=== PATIENT | male | born 1960 | race Caucasian/White ===

== ENCOUNTER 2021-07-12 13:07 | Inpatient (IN) ==
[2021-07-12 14:37] LABS: Basophils % 0.2 %; Eosinophils # 0.2 K/mcL (0.0-0.6); Eosinophils % 1.3 %; Hematocrit 42.7 % (37.5-50.1); Hemoglobin 14.2 g/dL (12.9-16.9); Immature Granulocytes % 0.4 % (0-4); Lymphocytes # 1.2 K/mcL (0.6-4.6); Lymphocytes % 10.8 %; Mean Corpuscular HGB Conc 33.3 g/dL (31.6-35.5); Mean Corpuscular Hemoglobin 30.5 pg (28.0-33.3); Mean Corpuscular Volume 91.8 fL (83.0-100.0); Mean Platelet Volume 9.6 fL (9.4-12.4); Monocytes # 0.8 K/mcL (0.0-1.3); Monocytes % 7.1 %; Neutrophils # 9.2 K/mcL (1.6-8.9); Platelet Count 246 K/mcL (140-400); Red Blood Count 4.65 M/mcL (4.19-5.50); Red Cell Distribution Width 13.1 % (11.5-14.5); Segmented Neutrophils % 80.2 %; White Blood Count 11.4 K/mcL (4.3-11.1)
[2021-07-12 14:58] LABS: Alanine Aminotransferase 10 Units/L (7-52); Albumin 3.7 g/dL (3.5-5.7); Albumin/Globulin Ratio 0.9 (1.1-2.2); Alkaline Phosphatase 88 Units/L (34-104); Aspartate Amino Transferase 8 Units/L (13-39); BUN/Creatinine Ratio 21 (6-26); Bilirubin,Direct 0.2 mg/dL (0.0-0.2); Bilirubin,Indirect 0.5 mg/dL (0.0-1.0); Bilirubin,Total 0.7 mg/dL (0.3-1.0); Blood Urea Nitrogen 21 mg/dL (8-23); Calcium 9.4 mg/dL (8.6-10.3); Carbon Dioxide 26 mEq/L (23-29); Chloride 95 mEq/L (98-107); Glucose 445 mg/dL (70-105); Osmolality,Calculated 290 (280-300); Potassium 4.3 mEq/L (3.5-5.1); Sodium 129 mEq/L (136-145); Total Protein 7.7 g/dL (6.4-8.9); eGFR For African Americans > 60 (> 60); eGFR For Non-African Americans > 60 (> 60)
[2021-07-12] MEDS ORDERED: Vancomycin (wt based) 1,000 MG VIAL IV ONE (15:13)
[2021-07-12] MEDS ORDERED: Ondansetron 4 MG/2 ML VIAL IVP PRN (15:43)
[2021-07-12] MEDS ORDERED: *HR* HYDROcodone/Acet 5/325 mg TABLET PO PRN (15:43)
[2021-07-12] MEDS ORDERED: Naloxone 0.4 MG/ML INJ IVP PRN (15:43)
[2021-07-12] MEDS ORDERED: 0.9 % Sodium Chloride 1,000 ML IVC SCH (15:45)
[2021-07-12] MEDS ORDERED: Dextrose Gel 15 GM/37.5 ML TUBE PO PRN ×2 (15:48)
[2021-07-12] MEDS ORDERED: *HR* Dextrose 50 % in Water (Vial) 50 ML VIAL IVP PRN (15:48)
[2021-07-12] MEDS ORDERED: D5% in Water 1,000 ML IVC PRN (15:48)
[2021-07-12] MEDS ORDERED: Cefepime HCl 2,000 MG in Water for inj. (sterile) 20 ML IVP SCH (16:00)
[2021-07-12] MEDS ORDERED: Isovue-370 500 ML BOTTLE IVP ONE (16:27)
[2021-07-12] MEDS: Clindamycin 600 MG/50 ML 600 MG/50 ML IV.SOLN IVPB SCH (18:14)
[2021-07-12] MEDS: Insulin LISPRO 300 UNITS/3 ML VIAL SUBQ SCH (18:14)
[2021-07-12] MEDS: *HR* Heparin 5,000 UNIT/ML VIAL SQ SCH (18:15)
[2021-07-12] MEDS: Piperacillin/Tazobactam 3.375 GM in 0.9 % Sodium Chloride Mini Bag 100 ML IVPB SCH (20:55)
[2021-07-12] MEDS: Gabapentin 300 MG CAPSULE PO SCH (20:55)
[2021-07-12] MEDS ORDERED: rOPINIRole 1 MG TABLET PO SCH (21:00)
[2021-07-12] MEDS ORDERED: Lactobacillus 1 EACH CAP.SPRINK PO SCH (21:00)
[2021-07-12] MEDS ORDERED: Insulin DETEMIR 100 UNIT/ML X5UNITS SUBQ SCH (21:00)
[2021-07-13] MEDS: Clindamycin 600 MG/50 ML 600 MG/50 ML IV.SOLN IVPB SCH ×3 (00:46→17:25)
[2021-07-13] MEDS: Piperacillin/Tazobactam 3.375 GM in 0.9 % Sodium Chloride Mini Bag 100 ML IVPB SCH ×4 (00:55→21:13)
[2021-07-13 02:54] LABS: Basophils % 0.2 %; Eosinophils # 0.1 K/mcL (0.0-0.6); Eosinophils % 1.2 %; Hematocrit 37.5 % (37.5-50.1); Hemoglobin 12.8 g/dL (12.9-16.9); Immature Granulocytes % 0.5 % (0-4); Lymphocytes # 0.7 K/mcL (0.6-4.6); Lymphocytes % 6.7 %; Mean Corpuscular HGB Conc 34.1 g/dL (31.6-35.5); Mean Corpuscular Hemoglobin 30.8 pg (28.0-33.3); Mean Corpuscular Volume 90.1 fL (83.0-100.0); Mean Platelet Volume 9.6 fL (9.4-12.4); Monocytes # 0.1 K/mcL (0.0-1.3); Monocytes % 1.3 %; Neutrophils # 9.1 K/mcL (1.6-8.9); Platelet Count 222 K/mcL (140-400); Red Blood Count 4.16 M/mcL (4.19-5.50); Red Cell Distribution Width 13.1 % (11.5-14.5); Segmented Neutrophils % 90.1 %; White Blood Count 10.1 K/mcL (4.3-11.1)
[2021-07-13 03:06] LABS: INR 1.1; Prothrombin Time 13.2 Seconds (9.4-12.1)
[2021-07-13 03:08] LABS: Activated Partial Thrombo Time 31.1 Seconds (26.0-36.0)
[2021-07-13 03:30] LABS: BUN/Creatinine Ratio 21 (6-26); Blood Urea Nitrogen 18 mg/dL (8-23); C-Reactive Protein 64 mg/L (Less than 10); Calcium 8.5 mg/dL (8.6-10.3); Carbon Dioxide 25 mEq/L (23-29); Chloride 100 mEq/L (98-107); Chol/HDL Ratio 3.5 (0-4.9); Cholesterol 128 mg/dL (< 200); Glucose 327 mg/dL (70-105); HDL Cholesterol 37 mg/dL (40-59); LDL Cholesterol,Calculated 64 mg/dL (< 100); Magnesium 1.6 mg/dL (1.6-2.6); Osmolality,Calculated 289 (280-300); Phosphorous 3.5 mg/dL (2.7-4.5); Potassium 4.2 mEq/L (3.5-5.1); Sodium 132 mEq/L (136-145); Triglycerides 136 mg/dL (< 150); eGFR For African Americans > 60 (> 60); eGFR For Non-African Americans > 60 (> 60)
[2021-07-13] MEDS ORDERED: Morphine Sulfate 2 MG/ML SYRINGE IVP ONE (03:32)
[2021-07-13 03:54] LABS: Estimated Average Glucose 280 mg/dl; Hemoglobin A1C 11.4 %
[2021-07-13] MEDS: *HR* Heparin 5,000 UNIT/ML VIAL SQ SCH ×2 (05:15→17:41)
[2021-07-13] MEDS: Insulin LISPRO 300 UNITS/3 ML VIAL SUBQ SCH ×3 (08:24→16:00)
[2021-07-13] MEDS: Gabapentin 300 MG CAPSULE PO SCH ×3 (08:24→21:12)
[2021-07-13] MEDS ORDERED: *HR* OxyCODONE Immed Rel 5 MG TABLET PO PRN (10:18)
[2021-07-13] MEDS ORDERED: Acetaminophen 325 MG TABLET PO PRN ×2 (10:18→17:21)
[2021-07-13] MEDS ORDERED: Vancomycin 1,000 MG VIAL ONE ×2 (10:42→15:48)
[2021-07-13] MEDS ORDERED: Bupivacaine/EPI 1:200k 0.25% 50 ML VIAL ONE ×2 (10:42→15:48)
[2021-07-13] MEDS ORDERED: Ondansetron 4 MG/2 ML VIAL ONE (15:59)
[2021-07-13] MEDS ORDERED: *HR* Midazolam HCl 2 MG/2 ML VIAL ONE (15:59)
[2021-07-13] MEDS ORDERED: *HR* Propofol 200 MG/20 ML VIAL IVP ONE (15:59)
[2021-07-13] MEDS ORDERED: Lidocaine -MPF 2% 2 ML VIAL ONE (15:59)
[2021-07-13] MEDS ORDERED: *HR* FentaNYL (PF) 100 MCG/2 ML VIAL ONE (15:59)
[2021-07-13] MEDS ORDERED: *HR* Rocuronium Bromide 50 MG/5 ML VIAL ONE (15:59)
[2021-07-13] MEDS ORDERED: *HR* Succinylcholine 200 MG/10 ML VIAL IVP ONE (15:59)
[2021-07-13] MEDS ORDERED: Ondansetron 4 MG/2 ML VIAL IVP PRN (17:21)
[2021-07-13] MEDS ORDERED: *HR* Dextrose 50 % in Water (Vial) 50 ML VIAL IVP PRN (17:21)
[2021-07-13] MEDS ORDERED: Dextrose Gel 15 GM/37.5 ML TUBE PO PRN ×2 (17:21)
[2021-07-13] MEDS ORDERED: Naloxone 0.4 MG/ML INJ IVP PRN (17:21)
[2021-07-13] MEDS ORDERED: D5% in Water 1,000 ML IVC PRN (17:21)
[2021-07-13] MEDS ORDERED: Insulin DETEMIR 100 UNIT/ML X5UNITS SUBQ SCH (21:00)
[2021-07-13] MEDS: Insulin DETEMIR 100 UNIT/ML X5UNITS SUBQ SCH (21:12)
[2021-07-13] MEDS: Lactobacillus 1 EACH CAP.SPRINK PO SCH (21:12)
[2021-07-13] MEDS: rOPINIRole 1 MG TABLET PO SCH (21:13)
[2021-07-13] MEDS: *HR* OxyCODONE Immed Rel 5 MG TABLET PO PRN (21:41)
[2021-07-14] MEDS ORDERED: Clindamycin 600 MG/50 ML 600 MG/50 ML IV.SOLN IVPB SCH
[2021-07-14 02:26] LABS: Hematocrit 40.1 % (37.5-50.1); Hemoglobin 13.2 g/dL (12.9-16.9); Mean Corpuscular HGB Conc 32.9 g/dL (31.6-35.5); Mean Corpuscular Hemoglobin 29.8 pg (28.0-33.3); Mean Corpuscular Volume 90.5 fL (83.0-100.0); Mean Platelet Volume 9.4 fL (9.4-12.4); Platelet Count 215 K/mcL (140-400); Red Blood Count 4.43 M/mcL (4.19-5.50); White Blood Count 6.3 K/mcL (4.3-11.1)
[2021-07-14 02:46] LABS: BUN/Creatinine Ratio 19 (6-26); Blood Urea Nitrogen 16 mg/dL (8-23); C-Reactive Protein 103 mg/L (Less than 10); Calcium 8.4 mg/dL (8.6-10.3); Carbon Dioxide 22 mEq/L (23-29); Chloride 100 mEq/L (98-107); Glucose 332 mg/dL (70-105); Osmolality,Calculated 284 (280-300); Potassium 4.3 mEq/L (3.5-5.1); Sodium 130 mEq/L (136-145); eGFR For African Americans > 60 (> 60); eGFR For Non-African Americans > 60 (> 60)
[2021-07-14] MEDS: Vancomycin 1,250 MG/262.5 ML IV.SOLN IVPB SCH ×2 (03:56→14:57)
[2021-07-14] MEDS: Piperacillin/Tazobactam 3.375 GM in 0.9 % Sodium Chloride Mini Bag 100 ML IVPB SCH ×3 (05:31→21:17)
[2021-07-14] MEDS: *HR* Heparin 5,000 UNIT/ML VIAL SQ SCH ×2 (05:32→18:11)
[2021-07-14] MEDS ORDERED: Insulin LISPRO 300 UNITS/3 ML VIAL SUBQ SCH (07:30)
[2021-07-14] MEDS: Gabapentin 300 MG CAPSULE PO SCH ×3 (09:06→21:15)
[2021-07-14] MEDS: Insulin LISPRO 300 UNITS/3 ML VIAL SUBQ SCH ×3 (12:42→21:16)
[2021-07-14] MEDS: *HR* OxyCODONE Immed Rel 5 MG TABLET PO PRN (16:59)
[2021-07-14] MEDS: Insulin DETEMIR 100 UNIT/ML X5UNITS SUBQ SCH (21:16)
[2021-07-14] MEDS: Lactobacillus 1 EACH CAP.SPRINK PO SCH (21:16)
[2021-07-14] MEDS: rOPINIRole 1 MG TABLET PO SCH (21:16)
[2021-07-15] MEDS: *HR* OxyCODONE Immed Rel 5 MG TABLET PO PRN (02:48)
[2021-07-15] MEDS: *HR* Heparin 5,000 UNIT/ML VIAL SQ SCH ×2 (05:33→17:01)
[2021-07-15] MEDS: Piperacillin/Tazobactam 3.375 GM in 0.9 % Sodium Chloride Mini Bag 100 ML IVPB SCH ×2 (05:33→14:39)
[2021-07-15] MEDS: Gabapentin 300 MG CAPSULE PO SCH ×3 (07:45→19:45)
[2021-07-15] MEDS: Insulin LISPRO 300 UNITS/3 ML VIAL SUBQ SCH ×4 (07:46→19:46)
[2021-07-15] MEDS: Lactobacillus 1 EACH CAP.SPRINK PO SCH (19:45)
[2021-07-15] MEDS: rOPINIRole 1 MG TABLET PO SCH (19:45)
[2021-07-15] MEDS: Insulin DETEMIR 100 UNIT/ML X5UNITS SUBQ SCH (19:46)
[2021-07-16] LABS: Bilirubin,Urine Negative (Negative); Blood,Urine Negative (Negative); Clarity,Urine Clear (Clear); Color,Urine Light-Yellow (Yellow); Glucose,Urine (UA) >=1000 mg/dL (Normal); Ketones,Urine Negative (Negative); Leukocyte Esterase,Urine Negative (Negative); Nitrite,Urine Negative (Negative); Protein,Urine Negative (Neg-Trace); RBC,Urine 0-3 per hpf (0-3); Specific Gravity,Urine 1.027 (1.010-1.025); Squamous Epithelial Cell,Urine Few per hpf (None-Few); Urobilinogen,Urine Normal (Normal); WBC,Urine 0-3 per hpf (0-3)
[2021-07-16] MEDS: Piperacillin/Tazobactam 3.375 GM in 0.9 % Sodium Chloride Mini Bag 100 ML IVPB SCH ×4 (00:17→20:42)
[2021-07-16] MEDS: *HR* OxyCODONE Immed Rel 5 MG TABLET PO PRN ×2 (00:17→22:09)
[2021-07-16] MEDS: *HR* Heparin 5,000 UNIT/ML VIAL SQ SCH ×2 (05:52→16:40)
[2021-07-16] MEDS: Insulin LISPRO 300 UNITS/3 ML VIAL SUBQ SCH ×4 (08:48→20:44)
[2021-07-16] MEDS: Gabapentin 300 MG CAPSULE PO SCH ×3 (08:52→20:43)
[2021-07-16] MEDS: rOPINIRole 1 MG TABLET PO SCH (20:42)
[2021-07-16] MEDS: Lactobacillus 1 EACH CAP.SPRINK PO SCH (20:42)
[2021-07-16] MEDS: Insulin DETEMIR 100 UNIT/ML X5UNITS SUBQ SCH (20:43)
[2021-07-17 05:51] LABS: Hematocrit 37.6 % (37.5-50.1); Hemoglobin 12.5 g/dL (12.9-16.9); Mean Corpuscular HGB Conc 33.2 g/dL (31.6-35.5); Mean Corpuscular Hemoglobin 29.6 pg (28.0-33.3); Mean Corpuscular Volume 89.1 fL (83.0-100.0); Mean Platelet Volume 9.1 fL (9.4-12.4); Platelet Count 233 K/mcL (140-400); Red Blood Count 4.22 M/mcL (4.19-5.50); Red Cell Distribution Width 13.1 % (11.5-14.5); White Blood Count 6.8 K/mcL (4.3-11.1)
[2021-07-17 06:12] LABS: Alanine Aminotransferase 9 Units/L (7-52); Albumin/Globulin Ratio 0.8 (1.1-2.2); Alkaline Phosphatase 69 Units/L (34-104); Aspartate Amino Transferase 14 Units/L (13-39); BUN/Creatinine Ratio 18 (6-26); Bilirubin,Total 0.3 mg/dL (0.3-1.0); Blood Urea Nitrogen 16 mg/dL (8-23); C-Reactive Protein 23 mg/L (Less than 10); Calcium 8.4 mg/dL (8.6-10.3); Carbon Dioxide 27 mEq/L (23-29); Chloride 97 mEq/L (98-107); Globulin 3.6 g/dL (2.4-3.5); Glucose 307 mg/dL (70-105); Osmolality,Calculated 285 (280-300); Potassium 4.3 mEq/L (3.5-5.1); Sodium 131 mEq/L (136-145); Total Protein 6.6 g/dL (6.4-8.9); eGFR For African Americans > 60 (> 60); eGFR For Non-African Americans > 60 (> 60)
[2021-07-17] MEDS: Piperacillin/Tazobactam 3.375 GM in 0.9 % Sodium Chloride Mini Bag 100 ML IVPB SCH ×2 (06:20→23:36)
[2021-07-17] MEDS: *HR* Heparin 5,000 UNIT/ML VIAL SQ SCH ×2 (06:21→18:00)
[2021-07-17] MEDS: Gabapentin 300 MG CAPSULE PO SCH ×3 (08:08→21:24)
[2021-07-17] MEDS: Insulin LISPRO 300 UNITS/3 ML VIAL SUBQ SCH ×4 (08:09→21:25)
[2021-07-17] MEDS ORDERED: Lidocaine -MPF 1% 5 ML AMPUL INFILT ONE (12:22)
[2021-07-17] MEDS ORDERED: Ampicillin 2,000 MG in 0.9 % Sodium Chloride Mini Bag 100 ML IVPB ONE (13:26)
[2021-07-17] MEDS: Lactobacillus 1 EACH CAP.SPRINK PO SCH (21:24)
[2021-07-17] MEDS: Insulin DETEMIR 100 UNIT/ML X5UNITS SUBQ SCH (21:24)
[2021-07-17] MEDS: rOPINIRole 1 MG TABLET PO SCH (21:24)
[2021-07-17] MEDS: *HR* OxyCODONE Immed Rel 5 MG TABLET PO PRN (23:42)
[2021-07-18] MEDS: Piperacillin/Tazobactam 3.375 GM in 0.9 % Sodium Chloride Mini Bag 100 ML IVPB SCH ×2 (02:48→07:41)
[2021-07-18] MEDS: *HR* Heparin 5,000 UNIT/ML VIAL SQ SCH (05:48)
[2021-07-18] MEDS: Gabapentin 300 MG CAPSULE PO SCH (07:40)
[2021-07-18] MEDS: Insulin LISPRO 300 UNITS/3 ML VIAL SUBQ SCH (07:41)
[2021-07-18 11:14] VITALS: BP 127/79; PULSE 68; TEMP 98; O2SAT 96
[2021-07-18] MEDS ORDERED: Ampicillin 2,000 MG in 0.9 % Sodium Chloride Mini Bag 100 ML IVPB SCH (16:00)
[2021-07-18] MEDS ORDERED: metroNIDAZOLE 500 MG TABLET PO SCH (21:00)
== END 2021-07-18 15:01 | disposition home health service (06) | DRG 616 ==
LOC: 3BNU 13:07 → EMEROOARM 13:07 → SUATTDRO 15:50 → 3BNU 17:35
PROVIDERS: ADMIT Pharmacist; ATTEND Registered Nurse